=== PATIENT | female | born 1950 | race Caucasian/White ===

== ENCOUNTER 2018-11-11 10:06 | Emergency (ER) | payer OTHER ==
[2018-11-11 10:20] VITALS: BMI 33.3
--- NOTE | 2018-11-11 10:34 | PDOC ---
History of Present Illness - General Chief Complaint: Chest Pain Stated Complaint: CHEST PAIN - History of Present Illness Initial Comments: The pt is a 68F w/ a history of anxiety, vertigo, hypothyroidism, neuropathy, and allergies who presents for evaluation of 1 day of palpitations, SOB, dizziness, and GIBBONS. The pt states she has been more stressed especially since last night when she had a stressful phone call. During the call is when her symptoms started. She was able to fall asleep, woke in the night symptom free, but then noted the palpitations and SOB this AM. Her dizziness feels like her typical vertiginous dizziness and her GIBBONS is frontal pressure-like and feels like her typical sinus HAs. She denies fevers/chills, vision changes, chest pain, abdominal pain, N/V/C/D, dysuria, hematuria, blood in her stool or acute changes in sensation. 11/11/18 10:53 Past History - Past Medical History Allergies/Adverse Reactions: Allergies Allergy/AdvReac Type Severity Reaction Status Date / Time No Known Allergies Allergy Verified 11/11/18 10:16 Home Medications: Ambulatory Orders Levothyroxine [Synthroid -] 25 mcg PO DAILY 03/28/14 Albuterol 0.083% Nebulizer Anisa [Ventolin 0.083% Nebulizer Soln -] 1 neb NEB Q4H PRN #1 box 09/29/14 Apixaban [Eliquis -] 5 mg PO BID #30 tablet 11/11/18 Cetirizine HCl 10 mg PO DAILY 11/11/18 Famotidine [Pepcid] 40 mg PO DAILY 11/11/18 Meclizine HCl 12.5 mg PO DAILY PRN 11/11/18 Metoprolol Tartrate 12.5 mg PO BID #30 tablet 11/11/18 Tizanidine HCl [Zanaflex] 4 mg PO HS 11/11/18 GI Disorders: Yes (hep c) Thyroid Disease: Yes (hypo) - Surgical History Abdominal Surgery: Yes - Suicide/Smoking/Psychosocial Hx Smoking History: Never smoked Have you smoked in the past 12 months: No Hx Alcohol Use: No Drug/Substance Use Hx: No Substance Use Type: None Review of Systems - Review of Systems Able to Perform ROS?: Yes Comments:: GENERAL/CONSTITUTIONAL: No fever or chills. No weakness HEAD, EYES, EARS, NOSE AND THROAT: No change in vision. No ear pain or discharge. No sore throat CARDIOVASCULAR: No chest pain RESPIRATORY: Denies cough, hemoptysis GASTROINTESTINAL: No nausea, vomiting, diarrhea or constipation GENITOURINARY: No dysuria, frequency, or change in urination MUSCULOSKELETAL: No joint or muscle swelling or pain. No neck or back pain SKIN: No rash NEUROLOGIC: +Vertigo; No headache, loss of consciousness, or change in strength/ sensation ENDOCRINE: No increased thirst. No abnormal weight change HEMATOLOGIC/LYMPHATIC: No anemia, easy bleeding, or history of blood clots ALLERGIC/IMMUNOLOGIC: No hives or skin allergy 11/11/18 11:13 Is the patient limited Portuguese proficient: No *Physical Exam - Vital Signs Last Vital Signs Temp Pulse Resp BP Pulse Ox 97.4 F L 83 20 111/75 98 11/11/18 10:16 11/11/18 10:16 11/11/18 10:16 11/11/18 10:16 11/11/18 10:16 - Physical Exam Comments: GENERAL: Awake, alert, and oriented to person/place/time, in no acute distress HEAD: No signs of trauma, normocephalic, atraumatic EYES: PERRLA, EOMI, sclera anicteric, conjunctiva clear ENT: Hearing grossly normal, nares patent, oropharynx clear without exudates. No uvular deviation. Moist mucosa LUNGS: No distress, speaks in full sentences, clear to auscultation bilaterally HEART: Regular rate w/ irregularly irregular rhythm, normal S1 and S2, no murmurs appreciated, peripheral pulses normal and equal bilaterally ABDOMEN: Soft, nontender, normoactive bowel sounds. No guarding, no rebound EXTREMITIES: Normal inspection, Normal range of motion, no edema. No clubbing or cyanosis NEUROLOGICAL: Cranial nerves II through XII grossly intact. Normal speech, normal gait, no focal sensorimotor deficits SKIN: Warm, Dry 11/11/18 11:13 ED Treatment Course - LABORATORY CBC & Chemistry Diagram: 11/11/18 10:50 11/11/18 12:00 Medical Decision Making - Medical Decision Making The pt is a 68F w/ a history of hypothyroidism, anxiety, neruopathy, vertigo, and allergies who presents for evaluation of 1 day of palpitations w/ SOB ED Course CMP, CBC, Trop I, TSH ECG CXR ECG w/ a-fib; HR 75; QTc 397; no evidence of acute ischemia [id number] score of 2 -Stroke risk 2.2% and 2.9% risk of stroke/TIA/systemic embolism -Pt would likely benefit from AC 11/11/18 11:14 No anemia No leukocytosis INR wnl 11/11/18 12:14 Zofran 4mg IV once for nausea 11/11/18 12:28 Tylenol 650mg PO once for GIBBONS 11/11/18 12:35 Lytes wnl Trop I neg No TOBIN LFTs wnl 11/11/18 12:55 Case discussed w/ Dr. Vivar. Will start pt on Metoprolol 12.5 daily and Eliquis 5mg BID 11/11/18 15:31 Plan for D/C w/ Cardiology and PCP f/u Discharge instructions, medication education, and return precautions provided Pt in agreement and verbalized understanding Dispo: home *DC/Admit/Observation/Transfer Diagnosis at time of Disposition: Palpitations Atrial fibrillation Qualifiers: Atrial fibrillation type: unspecified Qualified Code(s): I48.91 - Unspecified atrial fibrillation - Discharge Dispostion Disposition: HOME Condition at time of disposition: Good Decision to Admit order: No - Prescriptions Prescriptions: Apixaban [Eliquis -] 5 mg PO BID #30 tablet Metoprolol Tartrate 12.5 mg PO BID #30 tablet - Referrals Referrals: Maddy Valencia MD [Primary Care Provider] - Meme Vivar MD [Staff Physician] - - Patient Instructions Printed Discharge Instructions: DI for Atrial Fibrillation, Metoprolol, Apixaban Additional Instructions: You were seen in the Emergency Department for evaluation of palpitations and shortness of breath. You were found to have atrial fibrillation and were started on Eliquis 5mg twice a day and Metoprolol 12.5mg twice a day. A prescription for each was sent to the pharmacy you specified, take as directed. Review the handouts provided at discharge. Follow up with the Cardiology referral within the next week for an outpatient ECHO. It is important that you call today or tomorrow to establish an appointment. Return to the Emergency Department if you develop fevers/chills, chest pain, trouble breathing, worsening lightheadedness, fall, worsening symptoms, or any new/concerning symptoms. - Post Discharge Activity
--- NOTE | 2018-11-11 11:09 | PDOC ---
Attending Attestation - Resident Resident Name: Heron Hassan - ED Attending Attestation I have performed the following: I have examined & evaluated the patient, The case was reviewed & discussed with the resident, I agree w/resident's findings & plan, Exceptions are as noted - HPI HPI: 11/11/18 10:57 68y F hx of hypothyroidism, anxiety, presents with palpitations and anxious last night after having a heated discussion on thephone, she also endorses feeling alittle dizzy. Pt endorses still feeling that sensation with mild sob this morning so came to the ED for evaluation. Denies any anand cp, diaphoresis , n/v, fever/chills. Pt notes some diziness this morning c/w her vertigo - she took a mecllizine with resolution of it. she denies any visionchanges, numbnes/ tingling/weakness. Denies any medication dosage change Drank a cupt of coffe this morning, but denies any other drug or stimulant use. GENERAL: The patient is awake, alert, and fully oriented, Nontoxic - in no acute distress, obese HEAD: Normocephalic, atraumatic. EYES: extraocular movements intact, sclera anicteric, conjunctiva clear. ENT: Normal voice, Moist mucous membranes. NECK: Normal range of motion, supple LUNGS: Breath sounds equal, clear to auscultation bilaterally. No wheezes, no rhonchi, no rales. HEART: Irregularly irregular ABDOMEN: Soft, nontender, No guarding, no rebound. . No CVA tenderness EXTREMITIES: Normal range of motion, trace edema. NEUROLOGICAL: No facial assymetry, Normal speech, PSYCH: Normal mood, normal affect. SKIN: Warm, Dry, normal turgor, The patient's initial EKG shows A. fib which is new I suspect this may be causing her symptoms. We'll obtain blood work to rule out anemia, metabolic derangements, thyroid dysfunction, acs Patient's [id number] score is 2 indicating anticoagulation pt is rate controlled (80s-90s) but occasionally increases to 120 will discuss with cardiolgoy when labs are back - Physicial Exam PE: 11/12/18 23:13 see above - Medical Decision Making 11/11/18 16:40 dw cardiology recommends outpatient echo and starting eliquis and metoprolol grace have pt fu with dr. Vivar as outpatient tomororw Heart Score/ECG Review - ECG Impressions Comment:: 11/11/18 11:25 Twelve-lead EKG was performed and reviewed by me. Rate of [address] changes suggestive of this acute ischemia No prior EKG for comparison Impression: ATrila fibrillation
[2018-11-11 11:13] LABS: BASO % 0.6 % (0-2.0); EOS % 1.2 % (0-4.5); HEMATOCRIT 43.8 % (32.4-45.2); HEMOGLOBIN 14.7 GM/dL (10.7-15.3); LYMPH % 23.1 % (8-40); MCHC 33.5 g/dl (32.0-36.0); MEAN CELL VOLUME 89.4 fl (80-96); MEAN PLT VOLUME 8.7 fl (7.5-11.1); MONO % 13.1 % (3.8-10.2); PLATELET COUNT 270 K/MM3 (134-434); RDW 13.8 % (11.6-15.6); WHITE BLOOD COUNT 8.9 K/mm3 (4.0-10.0)
[2018-11-11 11:15] LABS: INR 0.96 (0.83-1.09); PROTHROMBIN TIME (PATIENT) 11.3 SEC (9.7-13.0)
[2018-11-11 11:17] LABS: ACTIVATED PTT 34.9 SECONDS (25.2-36.5)
[2018-11-11] MEDS ORDERED: ONDANSETRON 4 MG/2 ML VIAL IVPUSH ONE (12:28)
[2018-11-11] MEDS ORDERED: ONDANSETRON 4 MG/2 ML VIAL ONE (12:32)
[2018-11-11] MEDS ORDERED: ACETAMINOPHEN 325 MG TABLET (FP) PO ONE (12:34)
[2018-11-11] MEDS ORDERED: ACETAMINOPHEN 325 MG TABLET (FP) ONE (12:35)
[2018-11-11 12:53] LABS: ALK PHOS 96 U/L (45-117); ANION GAP 7 MMOL/L (8-16); BILIRUBIN,TOTAL 0.1 mg/dL (0.2-1); BLOOD UREA NITROGEN 14.4 mg/dL (7-18); CALCIUM 9.1 mg/dL (8.5-10.1); CHLORIDE 105 mmol/L (98-107); CO2 26 mmol/L (21-32); CREATININE 0.9 mg/dL (0.55-1.3); GLUCOSE,RANDOM 86 mg/dL (74-106); POTASSIUM 4.6 mmol/L (3.5-5.1); SGOT/AST 21 U/L (15-37); SGPT/ALT 22 U/L (13-61); SODIUM 138 mmol/L (136-145); TOT PROT 7.3 g/dl (6.4-8.2)
[2018-11-11] MEDS ORDERED: METOPROLOL TARTRATE 25 MG TABLET (FP) PO ONE (15:39)
[2018-11-11] MEDS ORDERED: APIXABAN 5 MG TABLET PO ONE ×2 (15:39→15:43)
[2018-11-11] MEDS ORDERED: METOPROLOL TARTRATE 25 MG TABLET (FP) ONE (15:43)
[2018-11-11 16:00] VITALS: BP 114/85; PULSE 85; TEMP 98.1
--- NOTE | 2018-11-12 12:01 | EKG ---
Test Reason : Blood Pressure : / mmHG Vent. Rate : 075 BPM Atrial Rate : 086 BPM P-R Int : 000 ms QRS Dur : 090 ms QT Int : 356 ms P-R-T Axes : 000 -25 030 degrees QTc Int : 397 ms ATRIAL FIBRILLATION ABNORMAL ECG NO PREVIOUS ECGS AVAILABLE Confirmed by BALAJI GUTHRIE MD ([id number]) on 11/12/2018 12:00:43 PM Referred By: Confirmed By:BALAJI GUTHRIE MD
== END 2018-11-11 16:00 | disposition home or self-care (01) ==
LOC: JER 10:06
PROC: 3E033GC Introduction of Other Therapeutic Substance into Peripheral Vein, Percutaneous Approach (ICD-10-PCS; principal; 2018-11-11)
DX: I48.91 Unspecified atrial fibrillation (principal); R00.2 Palpitations; E03.9 Hypothyroidism, unspecified; F41.9 Anxiety disorder, unspecified; G62.9 Polyneuropathy, unspecified
CPT/HCPCS: 36415; 71045-TC-FY; 80053; 84443; 84484; 85025; 85610; 85730; 93005; 93010; 99284-25

== ENCOUNTER 2019-02-15 10:11 | Emergency (ER) | payer OTHER ==
[2019-02-15 10:24] VITALS: BP 114/71; PULSE 77; TEMP 97.5; BMI 33.3
--- NOTE | 2019-02-15 12:27 | PDOC ---
History of Present Illness - General Chief Complaint: Wound Stated Complaint: WOUND Time Seen by Provider: 02/15/19 11:15 - History of Present Illness Initial Comments: 02/15/19 12:21 68 y/o F w/PMH of hypothyroid and a-fib presents for evaluation of R 2nd toe pain after getting a pedicure 4 days ago Past History - Past Medical History Allergies/Adverse Reactions: Allergies Allergy/AdvReac Type Severity Reaction Status Date / Time No Known Allergies Allergy Verified 02/15/19 10:24 Home Medications: Ambulatory Orders Levothyroxine [Synthroid -] 25 mcg PO DAILY 03/28/14 Albuterol 0.083% Nebulizer Anisa [Ventolin 0.083% Nebulizer Soln -] 1 neb NEB Q4H PRN #1 box 09/29/14 Apixaban [Eliquis -] 5 mg PO BID #30 tablet 11/11/18 Cetirizine HCl 10 mg PO DAILY 11/11/18 Famotidine [Pepcid] 40 mg PO DAILY 11/11/18 Meclizine HCl 12.5 mg PO DAILY PRN 11/11/18 Metoprolol Tartrate 12.5 mg PO BID #30 tablet 11/11/18 Tizanidine HCl [Zanaflex] 4 mg PO HS 11/11/18 Cephalexin [Keflex] 500 mg PO QID #40 capsule 02/15/19 Sulfamethoxazole/Trimethoprim [Bactrim Ds -] 1 tab PO BID #14 tablet 02/15/19 Cardiac Disorders: Yes (AFIB) COPD: No GI Disorders: Yes (hep c) Psychiatric Problems: Yes (Anxiety) Thyroid Disease: Yes (hypo) Other medical history: VERTIGO - Surgical History Abdominal Surgery: Yes - Immunization History Immunization Up to Date: Yes - Psycho Social/Smoking Cessation Hx Smoking History: Never smoked Have you smoked in the past 12 months: No Information on smoking cessation initiated: No Hx Alcohol Use: No Drug/Substance Use Hx: No Substance Use Type: None Review of Systems - Review of Systems Constitutional: No: Fever Musculoskeletal: Yes: See HPI *Physical Exam - Vital Signs Last Vital Signs Temp Pulse Resp BP Pulse Ox 97.5 F L 77 18 114/71 97 02/15/19 10:21 02/15/19 10:21 02/15/19 10:21 02/15/19 10:21 02/15/19 10:21 - Physical Exam Comments: 02/15/19 12:24 There is mild erythema about the dorsum of the 2nd toe of the R foot. The erythema does not extend proimal to the DIPJ, There is no associated warmth, sensitivity, induration, or fluctuance. There is appropriate tenderness, no drainage and there are no gross sensory or motor deficits. NVID. Medical Decision Making - Medical Decision Making 02/15/19 12:38 No indication of abscess, will place on ABX and have pt f/u with podiatry Discharge - Discharge Information Problems reviewed: Yes Clinical Impression/Diagnosis: Cellulitis of toe of right foot Condition: Stable Disposition: HOME - Admission No - Additional Discharge Information Prescriptions: Cephalexin [Keflex] 500 mg PO QID #40 capsule Sulfamethoxazole/Trimethoprim [Bactrim Ds -] 1 tab PO BID #14 tablet - Follow up/Referral Referrals: Pb Mckeon MD [Primary Care Provider] - Lee Slater MD [Non Staff, Medical] - - Patient Discharge Instructions Additional Instructions: Return to the emergency room should symptoms worsen. Please without fail follow up with podiatry in 1-2 days for further evaluation and treatment options. Take the antibiotics as directed and tylenol for pain - Post Discharge Activity
== END 2019-02-15 12:52 | disposition home or self-care (01) ==
LOC: JERFT 10:11
DX: L03.031 Cellulitis of right toe (principal); I48.91 Unspecified atrial fibrillation; Z79.01 Long term (current) use of anticoagulants; E03.9 Hypothyroidism, unspecified; F41.9 Anxiety disorder, unspecified; B18.2 Chronic viral hepatitis C
CPT/HCPCS: 99281-25

== ENCOUNTER 2020-12-12 12:58 | Emergency (ER) | payer OTHER ==
[2020-12-12 13:21] VITALS: TEMP 98; BMI 41.2
[2020-12-12 14:49] LABS: BASO % 0.3 % (0-2.0); EOS % 2.3 % (0-4.5); HEMATOCRIT 40.2 % (32.4-45.2); HEMOGLOBIN 13.4 GM/dL (10.7-15.3); LYMPH % 12.6 % (8-40); MCH 29.6 pg (25.7-33.7); MCHC 33.4 g/dl (32.0-36.0); MEAN CELL VOLUME 88.6 fl (80-96); MEAN PLT VOLUME 8.3 fl (7.5-11.1); MONO % 8.5 % (3.8-10.2); NEUT % 76.3 % (42.8-82.8); PLATELET COUNT 287 10^3/uL (134-434); RBC 4.54 M/mm3 (3.60-5.2); RDW 14.9 % (11.6-15.6); WHITE BLOOD COUNT 9.1 K/mm3 (4.0-10.0)
[2020-12-12 14:56] LABS: INR 1.35 (0.83-1.09); PROTHROMBIN TIME (PATIENT) 16.5 SEC (9.7-13.0)
[2020-12-12 14:58] LABS: ACTIVATED PTT 34.3 SECONDS (25.2-36.5); CHLORIDE 103 mmol/L (98-107); SODIUM 137 mmol/L (136-145)
[2020-12-12 15:00] LABS: ANION GAP 8 MMOL/L (8-16); CALCIUM 8.7 mg/dL (8.5-10.1); CO2 26 mmol/L (21-32); GLUCOSE,RANDOM 108 mg/dL (74-106)
[2020-12-12 15:01] LABS: ALBUMIN 3.8 g/dl (3.4-5.0); BLOOD UREA NITROGEN 9.2 mg/dL (7-18)
[2020-12-12 15:03] LABS: CREATININE 0.7 mg/dL (0.55-1.3)
[2020-12-12 15:04] LABS: SGOT/AST 21 U/L (15-37); SGPT/ALT 28 U/L (13-61)
[2020-12-12 15:05] LABS: BILIRUBIN,TOTAL 0.3 mg/dL (0.2-1); TOT PROT 7.2 g/dl (6.4-8.2)
[2020-12-12 15:06] LABS: ALK PHOS 116 U/L (45-117)
[2020-12-12 18:38] VITALS: BP 118/76; PULSE 84
== END 2020-12-12 20:28 | disposition home or self-care (01) ==
LOC: JER 12:58
DX: R07.89 Other chest pain (principal); I44.0 Atrioventricular block, first degree
CPT/HCPCS: 36415; 71045-TC-FY; 80053; 84484; 85025; 85610; 85730; 93005; 93010; 99285-25

== ENCOUNTER 2020-12-29 13:49 | Emergency (ER) | payer OTHER ==
[2020-12-29 13:59] VITALS: BP 130/73; PULSE 92; TEMP 98.6; BMI 40.2
== END 2020-12-29 16:45 | disposition home or self-care (01) ==
LOC: JERFT 13:49
DX: M25.561 Pain in right knee (principal)
CPT/HCPCS: 73502-TC-RT-FY; 73562-TC-RT-FY; 99284-25

== ENCOUNTER 2022-02-28 04:17 | Day surgery (SDC) | payer OTHER ==
[2022-02-26 17:33] VITALS: BMI 39.9
[~2022-02-28 04:17] MED LIST: BUPIVACAINE HCL/PF 0.75% 10 ML VIAL NR ONE; LIDOCAINE HCL 1% PRESERVATIVE FREE - 30ML VIAL IJ ONE
[2022-02-28 10:19] VITALS: RESP 18
[2022-02-28] MEDS ORDERED: LIDOCAINE HCL 1% PRESERVATIVE FREE - 30ML VIAL IJ ONE (11:37)
[2022-02-28] MEDS ORDERED: BUPIVACAINE HCL/PF 0.75% 10 ML VIAL NR ONE ×2 (11:44→11:45)
[2022-02-28 12:18] VITALS: TEMP 97.7
[2022-02-28 12:27] VITALS: BP 150/84; PULSE 76
== END 2022-02-28 12:25 | disposition home or self-care (01) ==
LOC: JASU-SURG 04:17
PROVIDERS: ATTEND Pain Medicine Pain Medicine
PROC: BR16YZZ Fluoroscopy of Lumbar Facet Joint(s) using Other Contrast (ICD-10-PCS; 2022-02-28)
PROC: 3E0T3BZ Introduction of Anesthetic Agent into Peripheral Nerves and Plexi, Percutaneous Approach (ICD-10-PCS; principal; 2022-02-28 11:15)
DX: M47.816 Spondylosis without myelopathy or radiculopathy, lumbar region (principal); I10 Essential (primary) hypertension
CPT/HCPCS: 76000-TC-FY

== ENCOUNTER → 2022-11-19 | Day surgery (SDC) | payer OTHER | END | disposition home or self-care (01) | LOC: JRADUS-SUR 13:02 | PROVIDERS: ATTEND Family Medicine | PROC: 0H9U3ZX Drainage of Left Breast, Percutaneous Approach, Diagnostic (ICD-10-PCS; principal; 2022-11-19) | DX: C50.412 Malignant neoplasm of upper-outer quadrant of left female breast (principal); Z17.0 Estrogen receptor positive status [ER+] | CPT/HCPCS: 19083; 77065-TC; 87899; 88305-TC; 88341-TC; 88342-TC; A4648 ==

== ENCOUNTER 2023-02-12 04:27 | Inpatient (IN) | payer OTHER ==
[2023-02-12] MEDS ORDERED: SODIUM CHLORIDE 0.9% 500 ML INFUS.BAG IV ONE (05:14)
[2023-02-12] MEDS ORDERED: ONDANSETRON 4 MG TABLET PO ONE (05:15)
[2023-02-12] MEDS ORDERED: ACETAMINOPHEN 1000 MG/100 ML BAG IVPB ONE (05:15)
[2023-02-12] MEDS ORDERED: ACETAMINOPHEN INJECTION 100 ML IVPB ONE (05:25)
[2023-02-12] MEDS ORDERED: ONDANSETRON 4 MG/2 ML VIAL ONE (05:25)
[2023-02-12 06:50] LABS: HEMATOCRIT 32.1 % (32.4-45.2); HEMOGLOBIN 11.2 GM/dL (10.7-15.3); MCH 30.7 pg (25.7-33.7); MCHC 34.9 g/dl (32.0-36.0); MEAN CELL VOLUME 87.9 fl (80-96); MEAN PLT VOLUME 9.2 fl (7.5-11.1); PLATELET COUNT 76 10^3/uL (134-434); RBC 3.66 M/mm3 (3.60-5.2); RDW 15.1 % (11.6-15.6)
[2023-02-12 06:59] LABS: INR 1.56 (0.83-1.09)
[2023-02-12 07:02] LABS: ACTIVATED PTT 27.4 SECONDS (25.2-36.5)
[2023-02-12 07:05] LABS: WHITE BLOOD COUNT 1.6 K/mm3 (4.0-10.0)
[2023-02-12 07:09] LABS: CHLORIDE 90 mmol/L (98-107); SODIUM 133 mmol/L (136-145)
[2023-02-12 07:11] LABS: ALBUMIN 3.6 g/dl (3.4-5.0); CALCIUM 7.9 mg/dL (8.5-10.1); CO2 32 mmol/L (21-32); GLUCOSE,RANDOM 137 mg/dL (74-106); LIPASE 66 U/L (73-393); MAGNESIUM 1.6 mg/dL (1.8-2.4)
[2023-02-12 07:12] LABS: BLOOD UREA NITROGEN 17.6 mg/dL (7-18)
[2023-02-12 07:14] LABS: SGOT/AST 27 U/L (15-37); SGPT/ALT 47 U/L (13-61)
[2023-02-12 07:16] LABS: TOT PROT 6.3 g/dl (6.4-8.2)
[2023-02-12 07:17] LABS: ALK PHOS 107 U/L (45-117)
[2023-02-12 07:23] LABS: ANION GAP 11 MMOL/L (8-16); POTASSIUM 2.8 mmol/L (3.5-5.1)
[2023-02-12] MEDS ORDERED: MAGNESIUM 1GM/D5W - 1 GM/100 ML IVPB IVPB ONE ×2 (07:34→07:37)
[2023-02-12] MEDS: KCL 10 MEQ IVPB 10 MEQ/100 ML INFUS.BAG IVPB SCH ×8 (07:45→23:24)
[2023-02-12] MEDS ORDERED: BACITRACIN 0.9 GM PACKET ONE (07:56)
[2023-02-12] MEDS ORDERED: PIPERACILLIN/TAZOB 4.5 GM 4.5 GM in DEXTROSE 5%-WATER 100 ML IVPB ONE (08:19)
[2023-02-12 08:23] LABS: EPI CELLS 34 /uL (0-25.1); HYALINE CASTS 1 /uL (0-3.1); URINE APPEARANCE CLEAR; URINE BACTERIA 24 /uL (0-1359); URINE BILIRUBIN NEGATIVE (NEGATIVE); URINE COLOR YELLOW; URINE GLUCOSE (UA) 1+ (NEGATIVE); URINE KETONE NEGATIVE (NEGATIVE); URINE LEUK ESTERASE NEGATIVE (NEGATIVE); URINE NITRITE NEGATIVE (NEGATIVE); URINE PROTEIN 2+ (NEGATIVE); URINE RBC 17 /uL (0-23.9); URINE UROBILINOGEN 0.2 mg/dL (0.2-1.0); URINE WBC 14 /uL (0-25.8)
[2023-02-12] MEDS ORDERED: PIPERACILLIN/TAZOB 4.5 GM 4.5 GM/100 ML BAG IVPB ONE (08:35)
[2023-02-12] MEDS ORDERED: KCL 10 MEQ IVPB 10 MEQ/100 ML INFUS.BAG IVPB ONE ×3 (08:53→15:01)
[2023-02-12 09:15] LABS: ANISOCYTOSIS 0; HELMET CELLS 0; HOWELL-JOLLY BODIES 0; MACROCYTOSIS 0; OVALOCYTE 0; ROULEAU 0; SICKELED CELLS 0; TARGET CELLS 0; TEAR DROP CELLS 0; TOXIC GRANULATION 0
[2023-02-12] MEDS ORDERED: METOCLOPRAMIDE HCL INJECTION 10 MG/2 ML VIAL IVPB ONE (11:36)
[2023-02-12] MEDS ORDERED: METOCLOPRAMIDE HCL INJECTION 10 MG/2 ML VIAL ONE (11:37)
[2023-02-12] MEDS ORDERED: VANCOMYCIN 1,000 MG in DEXTROSE 5%-WATER - 250 ML IVPB ONE (12:00)
[2023-02-12] MEDS ORDERED: VANCOMYCIN 1 GRAM (PRE-DOCKED) 1,000 MG/250 ML BAG IVPB ONE (12:11)
[2023-02-12] MEDS ORDERED: MAGNESIUM 2GM/50ML STERILE WATER IVPB IVPB ONE (14:03)
[2023-02-12] MEDS ORDERED: MAGNESIUM SULFATE IN WATER 2 GM/50 ML IVPB IVPB ONE (14:11)
[2023-02-12] MEDS ORDERED: DEXTROSE 5%-0.45% SALINE 1,000 ML IV SCH (14:15)
[2023-02-12 15:44] LABS: POTASSIUM 3.2 mmol/L (3.5-5.1)
[2023-02-12 15:46] LABS: MAGNESIUM 3.4 mg/dL (1.8-2.4)
[2023-02-12] MEDS ORDERED: LOPERAMIDE HCL 2 MG CAPSULE PO ONE (20:00)
[2023-02-12] MEDS: FAMOTIDINE 20 MG TABLET PO SCH (21:44)
[2023-02-12] MEDS: CARVEDILOL 3.125 MG TABLET (FP) PO SCH (21:44)
[2023-02-12] MEDS: APIXABAN 5 MG TABLET PO SCH (21:44)
[2023-02-12] MEDS: ATORVASTATIN CA 20 MG TABLET (FP) PO SCH (21:44)
[2023-02-12] MEDS: SODIUM CHLORIDE 1,000 ML IV SCH (22:18)
[2023-02-13] MEDS: KCL 10 MEQ IVPB 10 MEQ/100 ML INFUS.BAG IVPB SCH ×5 (00:13→14:01)
[2023-02-13] MEDS ORDERED: LOPERAMIDE HCL 2 MG CAPSULE PO ONE (00:45)
[2023-02-13] MEDS: LEVOTHYROXINE NA 25 MCG TABLET (FP) PO SCH (06:16)
[2023-02-13 08:51] LABS: HEMOGLOBIN 10.1 GM/dL (10.7-15.3); MCH 30.8 pg (25.7-33.7); MCHC 34.9 g/dl (32.0-36.0); MEAN CELL VOLUME 88.4 fl (80-96); PLATELET COUNT 75 10^3/uL (134-434); RBC 3.28 M/mm3 (3.60-5.2); RDW 15.2 % (11.6-15.6); WHITE BLOOD COUNT 4.6 K/mm3 (4.0-10.0)
[2023-02-13 09:08] LABS: CHLORIDE 96 mmol/L (98-107); SODIUM 135 mmol/L (136-145)
[2023-02-13 09:29] LABS: GLUCOSE,RANDOM 129 mg/dL (74-106)
[2023-02-13 09:30] LABS: ALBUMIN 3.3 g/dl (3.4-5.0); CALCIUM 7.7 mg/dL (8.5-10.1); CO2 31 mmol/L (21-32); MAGNESIUM 2.3 mg/dL (1.8-2.4); SGOT/AST 20 U/L (15-37)
[2023-02-13 09:33] LABS: CREATININE 0.8 mg/dL (0.55-1.3); PHOSPHOROUS 1.6 mg/dL (2.5-4.9)
[2023-02-13 09:34] LABS: BILIRUBIN,TOTAL 0.6 mg/dL (0.2-1); SGPT/ALT 40 U/L (13-61); TOT PROT 5.6 g/dl (6.4-8.2)
[2023-02-13 09:36] LABS: ALK PHOS 98 U/L (45-117)
[2023-02-13 09:38] LABS: ANION GAP 8 MMOL/L (8-16); POTASSIUM 2.6 mmol/L (3.5-5.1)
[2023-02-13] MEDS: CARVEDILOL 3.125 MG TABLET (FP) PO SCH ×2 (09:55→21:27)
[2023-02-13] MEDS: FAMOTIDINE 20 MG TABLET PO SCH ×2 (09:55→21:26)
[2023-02-13] MEDS: ESCITALOPRAM OXALATE 10 MG TABLET PO SCH (09:55)
[2023-02-13] MEDS: APIXABAN 5 MG TABLET PO SCH ×2 (09:55→21:27)
[2023-02-13 11:02] LABS: ANISOCYTOSIS 2+; MACROCYTOSIS 2+; OVALOCYTE 2+; TOXIC GRANULATION 2+
[2023-02-13] MEDS: PANTOPRAZOLE 40 MG TABLET PO SCH ×2 (11:24→21:27)
[2023-02-13] MEDS: SODIUM CHLORIDE 1,000 ML IV SCH (11:56)
[2023-02-13] MEDS: NAPH,MB-DB/K PH,MBDB POWDER PACKET PO SCH ×2 (13:06→21:32)
[2023-02-13] MEDS: TRIMETHOBENZAMIDE HCL 200MG/2ML INJ IM PRN (15:31)
[2023-02-13 17:21] LABS: POTASSIUM 2.8 mmol/L (3.5-5.1)
[2023-02-13] MEDS ORDERED: POTASSIUM CHLORIDE ORAL LIQUID 20 MEQ/15 ML PO ONE (17:41)
[2023-02-13] MEDS ORDERED: SODIUM CHLORIDE 0.9%/KCL 20 MEQ/1,000 ML INFUS.BAG IV SCH (17:45)
[2023-02-13] MEDS: ATORVASTATIN CA 20 MG TABLET (FP) PO SCH (21:27)
[2023-02-13] MEDS: CALCIUM (OYSTER SHELL) 500 MG TABLET (FP) PO SCH (21:27)
[2023-02-13] MEDS: SUMAtriptan SUCCINATE 50 MG TABLET PO PRN (21:49)
[2023-02-13] MEDS ORDERED: METOCLOPRAMIDE HCL 10 MG TABLET (FP) PO ONE (21:57)
[2023-02-13] MEDS: MECLIZINE HCL 25 MG TABLET (FP) PO PRN (22:07)
[2023-02-14] MEDS: NAPH,MB-DB/K PH,MBDB POWDER PACKET PO SCH ×3 (06:46→22:29)
[2023-02-14] MEDS: LEVOTHYROXINE NA 25 MCG TABLET (FP) PO SCH (06:46)
[2023-02-14] MEDS: MECLIZINE HCL 25 MG TABLET (FP) PO PRN ×2 (06:46→22:29)
[2023-02-14] MEDS ORDERED: LOPERAMIDE HCL 1 MG/5 ML UNIT DOSE CUP PO ONE (07:15)
[2023-02-14 07:18] LABS: BASO % 0.2 % (0-2.0); EOS % 0.3 % (0-4.5); HEMATOCRIT 28.1 % (32.4-45.2); HEMOGLOBIN 9.5 GM/dL (10.7-15.3); LYMPH % 10.3 % (8-40); MCH 30.6 pg (25.7-33.7); MCHC 33.7 g/dl (32.0-36.0); MEAN CELL VOLUME 90.8 fl (80-96); MEAN PLT VOLUME 8.9 fl (7.5-11.1); MONO % 6.5 % (3.8-10.2); NEUT % 82.7 % (42.8-82.8); PLATELET COUNT 88 10^3/uL (134-434); RDW 15.3 % (11.6-15.6); WHITE BLOOD COUNT 7.8 K/mm3 (4.0-10.0)
[2023-02-14 08:41] LABS: POTASSIUM 3.3 mmol/L (3.5-5.1)
[2023-02-14 08:44] LABS: BLOOD UREA NITROGEN 11.6 mg/dL (7-18); CALCIUM 7.7 mg/dL (8.5-10.1)
[2023-02-14 08:47] LABS: CREATININE 0.8 mg/dL (0.55-1.3)
[2023-02-14 08:48] LABS: TOT PROT 5.4 g/dl (6.4-8.2)
[2023-02-14 08:49] LABS: BILIRUBIN,TOTAL 0.3 mg/dL (0.2-1)
[2023-02-14] MEDS ORDERED: LOPERAMIDE HCL 1 MG/7.5 ML LIQUID PO ONE (09:00)
[2023-02-14] MEDS: APIXABAN 5 MG TABLET PO SCH ×2 (09:13→22:28)
[2023-02-14] MEDS: FAMOTIDINE 20 MG TABLET PO SCH ×2 (09:13→22:29)
[2023-02-14] MEDS: ESCITALOPRAM OXALATE 10 MG TABLET PO SCH (09:13)
[2023-02-14] MEDS: CALCIUM (OYSTER SHELL) 500 MG TABLET (FP) PO SCH ×2 (09:13→22:28)
[2023-02-14] MEDS: PANTOPRAZOLE 40 MG TABLET PO SCH ×2 (09:14→22:29)
[2023-02-14] MEDS: CARVEDILOL 3.125 MG TABLET (FP) PO SCH ×2 (09:14→22:28)
[2023-02-14] MEDS: POTASSIUM CHLORIDE ORAL LIQUID 20 MEQ/15 ML PO SCH ×2 (09:21→22:29)
[2023-02-14] MEDS: SUMAtriptan SUCCINATE 50 MG TABLET PO PRN (09:21)
[2023-02-14] MEDS: SODIUM CHLORIDE 1,000 ML IV SCH (09:24)
[2023-02-14 10:01] LABS: MAGNESIUM 1.8 mg/dL (1.8-2.4); MAGNESIUM 1.9 mg/dL (1.8-2.4)
[2023-02-14 10:04] LABS: PHOSPHOROUS 1.6 mg/dL (2.5-4.9)
[2023-02-14 10:05] LABS: PHOSPHOROUS 1.6 mg/dL (2.5-4.9)
[2023-02-14] MEDS: AMINO ACIDS 4.25%/D5W 1,000 ML IV SCH (15:01)
[2023-02-14 20:52] VITALS: BMI 37.0
[2023-02-14] MEDS: ATORVASTATIN CA 20 MG TABLET (FP) PO SCH (22:28)
[2023-02-15] MEDS: LEVOTHYROXINE NA 25 MCG TABLET (FP) PO SCH (06:20)
[2023-02-15] MEDS: NAPH,MB-DB/K PH,MBDB POWDER PACKET PO SCH ×3 (06:20→21:45)
[2023-02-15] MEDS ORDERED: LOPERAMIDE HCL 1 MG/5 ML UNIT DOSE CUP PO PRN (06:44)
[2023-02-15] MEDS: FAMOTIDINE 20 MG TABLET PO SCH ×4 (07:38→21:44)
[2023-02-15] MEDS: PANTOPRAZOLE 40 MG TABLET PO SCH ×3 (07:38→21:45)
[2023-02-15] MEDS: CALCIUM (OYSTER SHELL) 500 MG TABLET (FP) PO SCH ×2 (10:03→21:45)
[2023-02-15] MEDS: APIXABAN 5 MG TABLET PO SCH ×2 (10:03→21:45)
[2023-02-15] MEDS: ESCITALOPRAM OXALATE 10 MG TABLET PO SCH (10:03)
[2023-02-15] MEDS: POTASSIUM CHLORIDE ORAL LIQUID 20 MEQ/15 ML PO SCH ×2 (10:03→21:45)
[2023-02-15] MEDS: CARVEDILOL 3.125 MG TABLET (FP) PO SCH ×2 (10:03→21:45)
[2023-02-15] MEDS: MECLIZINE HCL 25 MG TABLET (FP) PO PRN ×2 (10:03→21:53)
[2023-02-15] MEDS: SODIUM CHLORIDE 1,000 ML IV SCH (10:04)
[2023-02-15 10:08] LABS: BASO % 0.2 % (0-2.0); EOS % 0.1 % (0-4.5); HEMATOCRIT 27.7 % (32.4-45.2); HEMOGLOBIN 9.4 GM/dL (10.7-15.3); LYMPH % 6.1 % (8-40); MCH 30.7 pg (25.7-33.7); MEAN CELL VOLUME 90.5 fl (80-96); MEAN PLT VOLUME 8.2 fl (7.5-11.1); NEUT % 87.6 % (42.8-82.8); PLATELET COUNT 89 10^3/uL (134-434); RBC 3.06 M/mm3 (3.60-5.2); RDW 15.1 % (11.6-15.6); WHITE BLOOD COUNT 7.8 K/mm3 (4.0-10.0)
[2023-02-15 10:23] LABS: POTASSIUM 3.1 mmol/L (3.5-5.1)
[2023-02-15 10:25] LABS: CALCIUM 7.8 mg/dL (8.5-10.1)
[2023-02-15 10:26] LABS: ALBUMIN 3.2 g/dl (3.4-5.0); BLOOD UREA NITROGEN 13.2 mg/dL (7-18)
[2023-02-15 10:28] LABS: CREATININE 0.8 mg/dL (0.55-1.3)
[2023-02-15 10:31] LABS: BILIRUBIN,TOTAL 0.3 mg/dL (0.2-1); TOT PROT 5.5 g/dl (6.4-8.2)
[2023-02-15 10:48] LABS: PHOSPHOROUS 1.2 mg/dL (2.5-4.9)
[2023-02-15] MEDS ORDERED: POTASSIUM CHLORIDE ORAL LIQUID 20 MEQ/15 ML PO ONE (11:45)
[2023-02-15] MEDS: TRIMETHOBENZAMIDE HCL 200MG/2ML INJ IM PRN (12:58)
[2023-02-15] MEDS ORDERED: POTASSIUM PHOSPHATE 15 MM in DEXTROSE 5%-WATER - 250 ML IVPB ONE (13:00)
[2023-02-15] MEDS: AMINO ACIDS 4.25%/D5W 1,000 ML IV SCH (18:15)
[2023-02-15] MEDS: LOPERAMIDE HCL 1 MG/5 ML UNIT DOSE CUP PO PRN (18:19)
[2023-02-15] MEDS: ATORVASTATIN CA 20 MG TABLET (FP) PO SCH (21:45)
[2023-02-16] MEDS: LOPERAMIDE HCL 1 MG/5 ML UNIT DOSE CUP PO PRN ×4 (00:58→20:41)
[2023-02-16] MEDS: LEVOTHYROXINE NA 25 MCG TABLET (FP) PO SCH (06:33)
[2023-02-16] MEDS: NAPH,MB-DB/K PH,MBDB POWDER PACKET PO SCH ×3 (06:34→22:26)
[2023-02-16] MEDS: FAMOTIDINE 20 MG TABLET PO SCH ×3 (07:15→16:25)
[2023-02-16] MEDS: ESCITALOPRAM OXALATE 10 MG TABLET PO SCH (09:31)
[2023-02-16] MEDS: SODIUM CHLORIDE 1,000 ML IV SCH ×2 (09:32→12:08)
[2023-02-16] MEDS: CALCIUM (OYSTER SHELL) 500 MG TABLET (FP) PO SCH ×2 (09:32→22:26)
[2023-02-16] MEDS: CARVEDILOL 3.125 MG TABLET (FP) PO SCH ×2 (09:32→22:26)
[2023-02-16] MEDS: POTASSIUM CHLORIDE ORAL LIQUID 20 MEQ/15 ML PO SCH ×2 (09:32→22:26)
[2023-02-16] MEDS: PANTOPRAZOLE 40 MG TABLET PO SCH ×2 (09:32→22:26)
[2023-02-16] MEDS: APIXABAN 5 MG TABLET PO SCH ×2 (09:32→22:26)
[2023-02-16 10:10] LABS: BASO % 0.1 % (0-2.0); EOS % 0.1 % (0-4.5); HEMATOCRIT 27.4 % (32.4-45.2); HEMOGLOBIN 9.5 GM/dL (10.7-15.3); LYMPH % 9.5 % (8-40); MCH 31.1 pg (25.7-33.7); MCHC 34.6 g/dl (32.0-36.0); MEAN CELL VOLUME 89.8 fl (80-96); MEAN PLT VOLUME 7.8 fl (7.5-11.1); MONO % 9.3 % (3.8-10.2); PLATELET COUNT 86 10^3/uL (134-434); RBC 3.06 M/mm3 (3.60-5.2); RDW 15.6 % (11.6-15.6); WHITE BLOOD COUNT 6.4 K/mm3 (4.0-10.0)
[2023-02-16 11:05] LABS: CALCIUM 7.9 mg/dL (8.5-10.1)
[2023-02-16 11:06] LABS: ALBUMIN 3.4 g/dl (3.4-5.0); BLOOD UREA NITROGEN 12.4 mg/dL (7-18)
[2023-02-16 11:08] LABS: CREATININE 0.8 mg/dL (0.55-1.3)
[2023-02-16 11:10] LABS: BILIRUBIN,TOTAL 0.4 mg/dL (0.2-1); TOT PROT 5.7 g/dl (6.4-8.2)
[2023-02-16] MEDS: KCL 10 MEQ IVPB 10 MEQ/100 ML INFUS.BAG IVPB SCH ×3 (11:59→13:52)
[2023-02-16] MEDS: TRIMETHOBENZAMIDE HCL 200MG/2ML INJ IM PRN (12:09)
[2023-02-16 12:26] LABS: MAGNESIUM 1.3 mg/dL (1.8-2.4)
[2023-02-16 12:30] LABS: PHOSPHOROUS 1.7 mg/dL (2.5-4.9)
[2023-02-16] MEDS ORDERED: MAGNESIUM 2GM/50ML STERILE WATER IVPB IVPB ONE (15:10)
[2023-02-16] MEDS: ATORVASTATIN CA 20 MG TABLET (FP) PO SCH (22:26)
[2023-02-16] MEDS: MECLIZINE HCL 25 MG TABLET (FP) PO PRN (22:27)
[2023-02-17] MEDS ORDERED: LOPERAMIDE HCL 1 MG/7.5 ML LIQUID PO PRN (00:45)
[2023-02-17] MEDS: NAPH,MB-DB/K PH,MBDB POWDER PACKET PO SCH ×3 (06:32→21:32)
[2023-02-17] MEDS: LEVOTHYROXINE NA 25 MCG TABLET (FP) PO SCH (06:32)
[2023-02-17] MEDS: FAMOTIDINE 20 MG TABLET PO SCH ×2 (07:35→16:10)
[2023-02-17] MEDS ORDERED: PORTA CATH FLUSH 10 ML IVPUSH PRN (09:26)
[2023-02-17 09:43] LABS: BASO % 0.3 % (0-2.0); HEMATOCRIT 28.2 % (32.4-45.2); HEMOGLOBIN 9.4 GM/dL (10.7-15.3); LYMPH % 8.2 % (8-40); MCH 30.7 pg (25.7-33.7); MCHC 33.3 g/dl (32.0-36.0); MEAN CELL VOLUME 92.3 fl (80-96); MEAN PLT VOLUME 7.9 fl (7.5-11.1); MONO % 8.1 % (3.8-10.2); NEUT % 83.4 % (42.8-82.8); PLATELET COUNT 87 10^3/uL (134-434); RBC 3.06 M/mm3 (3.60-5.2); RDW 15.9 % (11.6-15.6); WHITE BLOOD COUNT 7.3 K/mm3 (4.0-10.0)
[2023-02-17] MEDS: PANTOPRAZOLE 40 MG TABLET PO SCH ×2 (09:53→21:33)
[2023-02-17] MEDS: APIXABAN 5 MG TABLET PO SCH (09:53)
[2023-02-17] MEDS: ESCITALOPRAM OXALATE 10 MG TABLET PO SCH (09:53)
[2023-02-17] MEDS: CARVEDILOL 3.125 MG TABLET (FP) PO SCH ×2 (09:53→21:32)
[2023-02-17] MEDS: CALCIUM (OYSTER SHELL) 500 MG TABLET (FP) PO SCH ×2 (09:53→21:33)
[2023-02-17] MEDS: MECLIZINE HCL 25 MG TABLET (FP) PO PRN (09:53)
[2023-02-17] MEDS: POTASSIUM CHLORIDE ORAL LIQUID 20 MEQ/15 ML PO SCH ×2 (09:53→21:32)
[2023-02-17 10:15] LABS: POTASSIUM 3.2 mmol/L (3.5-5.1)
[2023-02-17 10:20] LABS: ALBUMIN 3.2 g/dl (3.4-5.0)
[2023-02-17 10:22] LABS: BLOOD UREA NITROGEN 10.8 mg/dL (7-18); MAGNESIUM 1.6 mg/dL (1.8-2.4)
[2023-02-17 10:24] LABS: CREATININE 0.8 mg/dL (0.55-1.3); PHOSPHOROUS 2.1 mg/dL (2.5-4.9)
[2023-02-17 10:26] LABS: BILIRUBIN,TOTAL 0.5 mg/dL (0.2-1); TOT PROT 5.7 g/dl (6.4-8.2)
[2023-02-17] MEDS ORDERED: MAGNESIUM OXIDE 400 MG TABLET (FP) PO ONE (11:04)
[2023-02-17] MEDS ORDERED: POTASSIUM CHLORIDE TABS 20 MEQ TABLET.ER (FP) PO ONE (11:04)
[2023-02-17 17:49] VITALS: RESP 18
[2023-02-17] MEDS: ATORVASTATIN CA 20 MG TABLET (FP) PO SCH (21:32)
[2023-02-17] MEDS: LOPERAMIDE HCL 1 MG/5 ML UNIT DOSE CUP PO PRN (21:33)
[2023-02-17] MEDS: SUMAtriptan SUCCINATE 50 MG TABLET PO PRN (21:33)
[2023-02-18] MEDS: NAPH,MB-DB/K PH,MBDB POWDER PACKET PO SCH (05:00)
[2023-02-18] MEDS: LEVOTHYROXINE NA 25 MCG TABLET (FP) PO SCH (06:28)
[2023-02-18] MEDS: FAMOTIDINE 20 MG TABLET PO SCH (06:30)
[2023-02-18] MEDS ORDERED: LOPERAMIDE HCL 2 MG CAPSULE PO PRN (09:33)
[2023-02-18 09:57] VITALS: BP 121/66; PULSE 83; TEMP 98
[2023-02-18] MEDS: CALCIUM (OYSTER SHELL) 500 MG TABLET (FP) PO SCH (10:06)
[2023-02-18] MEDS: ESCITALOPRAM OXALATE 10 MG TABLET PO SCH (10:07)
[2023-02-18] MEDS: POTASSIUM CHLORIDE ORAL LIQUID 20 MEQ/15 ML PO SCH (10:07)
[2023-02-18] MEDS: CARVEDILOL 3.125 MG TABLET (FP) PO SCH (10:07)
[2023-02-18] MEDS: PANTOPRAZOLE 40 MG TABLET PO SCH (10:09)
== END 2023-02-18 11:05 | disposition home or self-care (01) | DRG 640 ==
LOC: JER 04:27 → JERBED 11:33 → J7W 16:53
PROVIDERS: ADMIT Internal Medicine; ATTEND Nurse Practitioner Acute Care
DX: E87.8 Other disorders of electrolyte and fluid balance, not elsewhere classified (principal); E43 Unspecified severe protein-calorie malnutrition; B19.10 Unspecified viral hepatitis B without hepatic coma; I48.91 Unspecified atrial fibrillation; E87.1 Hypo-osmolality and hyponatremia; Z79.01 Long term (current) use of anticoagulants; I10 Essential (primary) hypertension; E78.5 Hyperlipidemia, unspecified; E03.9 Hypothyroidism, unspecified; F41.9 Anxiety disorder, unspecified; E86.0 Dehydration; E87.6 Hypokalemia; R11.2 Nausea with vomiting, unspecified; E83.42 Hypomagnesemia; E83.51 Hypocalcemia; G47.30 Sleep apnea, unspecified; K82.8 Other specified diseases of gallbladder; C50.919 Malignant neoplasm of unspecified site of unspecified female breast; Z68.37 Body mass index [BMI] 37.0-37.9, adult; D70.9 Neutropenia, unspecified; R19.7 Diarrhea, unspecified; T45.1X5A Adverse effect of antineoplastic and immunosuppressive drugs, initial encounter; D69.6 Thrombocytopenia, unspecified; R19.5 Other fecal abnormalities
CPT/HCPCS: 0241U-QW; 36415; 71045-TC-FY; 74176-TC; 76705-TC; 80053; 81003; 82272; 83690; 83735; 84100; 84132; 84484; 85025; 85610; 85730; 86850; 86900; 86901; 87045; 87046; 87086; 87205; 87209; 87324; 87449; 87798; 93005; 93010; 99291